=== PATIENT | female | born 1960 | race Hispanic/Latino ===

== ENCOUNTER 2016-07-06 18:01 | Emergency (ER) | payer OTHER, MEDICARE ==
[~2016-07-06] VITALS: Ht 154.9 cm; Wt 81.0 kg
[~2016-07-06 18:01] MED LIST: ACET325T38 PO; ALLO300T2 PO; ALPR.5T PO; ALPR0.25 PO; AML2.5T PO; AML5T PO; AMLO10TA82 PO; ASPI-809 PO; ASPI-860 PO; ATN50T PO; ATOR20TA PO; ATOR40TA2 PO; AZIT250T PO; AZIT250T81 PO; BO30SU PR; CALC600T12 PO; CEFD300C PO; CELE200C PO; CELE50CA PO; CEPH-507 PO; CLON0.1T PO; CLON1TAB27 PO; CLON1TAB3 PO; CLOP75TA28 PO; CLOP75TA3 PO; COLC0.6T7 PO; CPR500T PO; CYCL-265 PO; CYCL10TA45 PO; DABI150C PO; DABI75CA2 PO; DIAZ5TAB3 PO; DICY10CA26 PO; DOCU-243 PO; DULO20CA PO; DULO30CA PO; DULO30CA3 PO; ENOX80DI7 SC; ENOX80DI7 SQ; ENXP80I.8 SC; ESZO3TAB38 PO; FEN12TD TD; FENT1PAT8 TD; FLUT16SP; FNT100TD TD; FNT50TD TD; FNT50TD TOP; FNT75TD TD; FURO40TA4 PO; GABA100C PO; GBPN100C PO; GBPN300C PO; HYDR-2651 PO; HYDR2TAB14 PO; IRON150C3 PO; ISOS30TA7 PO; KCL20TCR PO; LD5PT TOP; LIDO700A32 TOP; LORA0.5T PO; METH4TAB10 PO; METH750T3 PO; MGS40T PO; MIRT15TA98 PO; MORP-33 PO; MORP15TA PO; NFPRILOC40 PO; NIFE30TA94 PO; NITR0.4T SL; NITR100C PO; NITR100C3 PO; NYST30CR TOP; OMEP40CA3 PO; OMG1KC PO; ONDA4TAB11 PO; ONDA4TAB8 PO; OXYC-272 PO; OXYC15TA79 PO; OXYC1TAB12 PO; OXYC1TAB7 PO; PANT40TA3 PO; PHYT100T PO; POLY17PO2 PO; POTA10CA43 PO; POTA10TA10 PO; PRAM0.252 PO; PRAM0.253 PO; PRAM0.257 PO; PREG25CA GT; PREG25CA PO; SCR1T1 PO; SERT100T8 PO; SIMV40TA2 PO; SLEEPING PILL PO; SOTA120T PO; SPRN25T PO; SRTR100T PO; SULF1TAB35 PO; TOLT2TAB5 PO; TRIA80CR3 TOP; WARF10TA PO; WARF5TAB6 PO; WARF6TAB3 PO; WRF5T PO
[2016-07-06] MEDS ORDERED: WRF5T PO (18:27)
[2016-07-06] MEDS ORDERED: CLPD75T PO (18:27)
--- NOTE | 2016-07-06 19:00 | NUR ---
Report given to Maritza RN - care relinquished
--- NOTE | 2016-07-06 19:35 | NUR ---
Patient reported, "I think I am having withdrawals from not taking my pain medications. Dr. Fu stopped all my pain medications two weeks ago and when I was in [facility] the PA told me not to use my Fentanyl patches because that is what is killing people more than the pills. So I havent had one on since [place]."
[2016-07-06 19:37] LABS: BASOPHILS % (AUTO) 1 % (0-2); EOSINOPHILS % (AUTO) 1 % (0-4); LYMPHOCYTES # (AUTO) 1.8 X10^3; MEAN CORPUSCULAR HEMOGLOBIN 29.3 PG (26.0-34.0); MEAN CORPUSCULAR HGB CONC 34.7 g/dL (31.0-37.0); MEAN CORPUSCULAR VOLUME 84 FL (80-100); MEAN PLATELET VOLUME 9.4 FL (6.0-9.5); MONOCYTES # (AUTO) 0.3 X10^3; MONOCYTES % (AUTO) 5 % (3-11); NEUTROPHILS # (AUTO) 4.4 X10^3; NEUTROPHILS % (AUTO) 67 % (51-67); PLATELET COUNT 193 10^3uL (150-450); WHITE BLOOD COUNT 6.64 10^3uL (4.0-11.0)
[2016-07-06 19:58] LABS: ALBUMIN 4.6 g/dL (3.4-5.0); ALKALINE PHOSPHATASE 108 U/L (38-126); ANION GAP 19.1 MEQ/L (3-15); BUN/CREATININE RATIO 21 (10-20); CALCULATED IONIZED CALCIUM 3.9 mg/dL (3.8-4.6); CREATINE KINASE 47 U/L (30-135); TOTAL PROTEIN 7.7 g/dL (6.4-8.5)
[2016-07-06] MEDS ORDERED: DEXAMETHASONE 10 MG/ML (DECADRON) VIAL IM ONE (20:20)
--- NOTE | 2016-07-06 20:27 | NUR ---
[facility] GIVEN IM NOT IV SO NO START STOP TIME
[2016-07-06] MEDS ORDERED: METH4TAB27 PO (20:49)
[2016-07-06 20:58] VITALS: BP 121/80
--- NOTE | 2016-07-06 22:14 | Diagnostic Imaging Report ---
INDICATION: A 55-year-old female presents with shortness of breath, chest pain, and shoulder pain. COMPARISONS: 05/10/16. FINDINGS: PA and lateral films of the chest show chronic parenchymal changes. Cardiac contour is normal. No significant consolidations seen. There is a previous median sternotomy possibly for a CABG. Coronary stent is seen. There is no effusion or pneumothorax. Soft tissues and bony thorax are grossly unremarkable. IMPRESSION: Chronic parenchymal changes but no evidence of acute cardiopulmonary disease. Dictated by: Dictated on workstation # [id number]
--- NOTE | 2016-07-06 22:18 | Diagnostic Imaging Report ---
INDICATION: 55-year-old female presents with left shoulder pain. COMPARISON: None. EXAMINATION: Three views of the left shoulder were obtained. FINDINGS: No evidence of new or healing fractures, bony destruction or remodeling. The left femoral head appears well-seated within the left glenoid. IMPRESSION: No fracture or subluxation is seen with an intact left glenohumeral joint. If symptoms persist, a nonemergent MRI may be of further value to better assess for possible internal derangement. Dictated by: Dictated on workstation # [id number]
[2016-08-09] MEDS ORDERED: MIRT15TA8 PO (16:35)
[2016-08-09] MEDS ORDERED: BACL10TA PO (16:35)
[2016-08-09] MEDS ORDERED: GBPN300C PO (16:35)
[2016-08-09] MEDS ORDERED: AMOX1TAB12 PO (18:29)
[2016-08-09] MEDS ORDERED: HYDR-3702 PO (18:29)
[2016-09-05] MEDS ORDERED: OXYC1TAB87 PO (18:16)
[2016-09-24] MEDS ORDERED: TOLT2TAB5 (12:46)
[2016-09-24] MEDS ORDERED: ATOR40TA59 PO (12:46)
[2016-09-24] MEDS ORDERED: SOTA120T (12:46)
[2016-09-24] MEDS ORDERED: POTA10TA10 (12:46)
[2016-09-24] MEDS ORDERED: PANT40TA3 (12:46)
[2016-09-24] MEDS ORDERED: NITR0.4T7 PO (12:46)
[2016-09-24] MEDS ORDERED: FURO40TA4 (12:46)
[2016-09-24] MEDS ORDERED: SPRN25T PO (12:46)
[2016-09-24] MEDS ORDERED: ALLO300T2 (12:46)
[2016-09-24] MEDS ORDERED: CLOP75TA28 (12:46)
[2016-09-24] MEDS ORDERED: OXYC1TAB12 (12:46)
[2016-09-24] MEDS ORDERED: WARF5TAB6 (12:46)
[2016-09-24] MEDS ORDERED: AMLO10TA82 (12:46)
[2016-09-24] MEDS ORDERED: ONDA4TAB8 PO (14:05)
== END 2016-07-06 20:59 | disposition home or self-care (01) ==
LOC: ED 18:05
DX: M54.12 Radiculopathy, cervical region (principal)
CPT/HCPCS: 36415; 71020; 73030; 80053; 82550; 82553; 84484; 85025; 85379; 85610; 85730; 93005; 96372; 99282; J1100; 93010; 99284

== ENCOUNTER 2016-07-25 03:08 | Emergency (ER) | payer OTHER, MEDICARE ==
[~2016-07-25] VITALS: Ht 154.9 cm; Wt 89.3 kg
--- NOTE | 2016-07-25 03:27 | NUR ---
PT STATES SHE HAS QUIT TAKING ALL OF HER MEDS, SAID SHE TOLD HER SHE IS SUPPOSE TO GO SEE A PAIN SPECIALIST IN [place] NEXT WEEK.
[2016-07-25] MEDS ORDERED: KETOROLAC 60 MG/2 ML (TORADOL) VIAL IM ONE (03:50)
--- NOTE | 2016-07-25 04:00 | NUR ---
D/T PT STOPPED ALL MEDS INSTRUCTED BY DR SALMON TO FOLLOW UP WITH DR CAMACHO FOR FURTHER MEDICATION MANAGEMENT
[2016-07-25 04:13] VITALS: BP 190/97
== END 2016-07-25 04:15 | disposition home or self-care (01) ==
LOC: ED 03:09
DX: G89.29 Other chronic pain (principal); M79.632 Pain in left forearm
CPT/HCPCS: 96372; 99282; J1885

== ENCOUNTER 2016-08-09 16:16 | Emergency (ER) | payer OTHER, MEDICARE ==
[~2016-08-09] VITALS: Ht 154.9 cm; Wt 83.4 kg
[2016-08-09 16:31] VITALS: BP 162/102
== END 2016-08-09 18:38 | disposition home or self-care (01) ==
LOC: ED 16:17
DX: J01.30 Acute sphenoidal sinusitis, unspecified (principal)
CPT/HCPCS: 70450; 70486; 99282; 99283

== ENCOUNTER 2016-09-05 13:09 | Emergency (ER) | payer OTHER, MEDICARE ==
[~2016-09-05] VITALS: Ht 154.9 cm; Wt 83.6 kg
[2016-09-05 13:21] VITALS: BP 167/83
[2016-09-05] MEDS ORDERED: HYDROmorphone 1 MG/ML (DILAUDID) SYRINGE IV ONE (14:45)
[2016-09-05] MEDS ORDERED: PROMETHAZINE 25 MG/ML (PHENERGAN) 1 ML VIAL IM ONE (14:45)
--- NOTE | 2016-09-05 15:20 | NUR ---
water given to pt
== END 2016-09-05 18:29 | disposition home or self-care (01) ==
LOC: ED 13:12
DX: G89.29 Other chronic pain (principal); M54.5 Low back pain; M54.89 Other dorsalgia
CPT/HCPCS: 72072; 96372; 96374; 99282; J1170; J2550; 99283

== ENCOUNTER → 2016-09-15 | Outpatient (CLI) | payer OTHER, MEDICARE | LOC: RAD 16:33 | PROVIDERS: ATTEND Neurological Surgery | DX: M48.06 Spinal stenosis, lumbar region (principal); M51.36 Other intervertebral disc degeneration, lumbar region | CPT/HCPCS: 72100 ==

== ENCOUNTER 2016-09-24 12:14 | Emergency (ER) | payer OTHER, MEDICARE ==
[~2016-09-24] VITALS: Ht 154.9 cm; Wt 82.3 kg
[2016-09-24] MEDS ORDERED: ONDANSETRON 2 MG/ML (Z0FRAN) 2 ML VIAL IV ONE (12:40)
[2016-09-24] MEDS ORDERED: NS IV 500 ML 500 ML IV SCH (12:40)
[2016-09-24] MEDS ORDERED: PANTOPRAZOLE IV 40 MG in SODIUM CHLORIDE FLUSH 10 ML IV ONE (12:50)
[2016-09-24] MEDS ORDERED: morphine INJ 4 MG/ML 1 ML SYRINGE IV ONE (13:15)
[2016-09-24 13:19] LABS: BASOPHILS % (AUTO) 1 % (0-2); EOSINOPHILS # (AUTO) 0.1 10^3uL; EOSINOPHILS % (AUTO) 2 % (0-4); LYMPHOCYTES # (AUTO) 1.6 X10^3; MEAN CORPUSCULAR HEMOGLOBIN 29.7 PG (26.0-34.0); MEAN CORPUSCULAR HGB CONC 34.7 g/dL (31.0-37.0); MEAN CORPUSCULAR VOLUME 86 FL (80-100); MEAN PLATELET VOLUME 9.4 FL (6.0-9.5); MONOCYTES # (AUTO) 0.4 X10^3; MONOCYTES % (AUTO) 7 % (3-11); NEUTROPHILS # (AUTO) 3.4 X10^3; NEUTROPHILS % (AUTO) 62 % (51-67); PLATELET COUNT 182 10^3uL (150-450); WHITE BLOOD COUNT 5.42 10^3uL (4.0-11.0)
[2016-09-24 13:37] LABS: ALBUMIN 4.8 g/dL (3.4-5.0); CALCULATED IONIZED CALCIUM 3.7 mg/dL (3.8-4.6); TOTAL PROTEIN 8.2 g/dL (6.4-8.5)
[2016-09-24 13:57] LABS: BILIRUBIN,URINE Negative (Negative); CLARITY,URINE Clear; COLOR,URINE Yellow; GLUCOSE, URINE (UA) Negative (Negative); LEUKOCYTE ESTERASE ,URINE Negative (Negative); PH,URINE 5.5 (5.0 - 8.0); UROBILINOGEN,URINE 0.2 mg/dL (0.2-1.0)
[2016-09-24 14:16] LABS: URINE CENTRIFUGED VOLUME 12 mL
[2016-09-24 14:17] VITALS: BP 122/61
== END 2016-09-24 14:18 | disposition home or self-care (01) ==
LOC: ED 12:18
DX: R10.32 Left lower quadrant pain (principal); R11.2 Nausea with vomiting, unspecified
CPT/HCPCS: 36415; 74022; 80053; 81003; 81015; 83690; 85025; 85610; 96361; 96365; 96375; 99283; C9113; J2270; J2405; J7040

== ENCOUNTER 2016-10-20 13:46 | Emergency (ER) | payer OTHER, MEDICARE ==
[~2016-10-20] VITALS: Ht 154.9 cm; Wt 81.8 kg
[~2016-10-20 13:46] MED LIST changes: +ALLO300T2; +AMLO10TA82; +AMOX1TAB12 PO; +ATOR40TA59 PO; +BACL10TA PO; +CLOP75TA28; +CLPD75T PO; +FURO40TA4; +HYDR-3702 PO; +METH4TAB27 PO; +MIRT15TA8 PO; +NITR0.4T7 PO; +OXYC1TAB12; +OXYC1TAB87 PO; +PANT40TA3; +POTA10TA10; +SOTA120T; +TOLT2TAB5; +WARF5TAB6
[2016-10-20] MEDS ORDERED: ASPIRIN 81 MG CHEW (CHILDREN'S ASA) PO PRN (14:05)
[2016-10-20] MEDS ORDERED: NITROGLYCERIN SUBLINGUAL 0.4 MG (NITROQUICK) TABLET SL PRN (14:05)
[2016-10-20] MEDS ORDERED: morphine INJ 2 MG/ML 1 ML SYRINGE IV PRN (14:05)
[2016-10-20] MEDS ORDERED: NITROGLYCERIN 2% OINTMENT (NITRO-BID) 1 GM UNIT DOSE PACKET TOP PRN (14:05)
[2016-10-20 14:10] LABS: BASOPHILS % (AUTO) 0 % (0-2); EOSINOPHILS % (AUTO) 1 % (0-4); LYMPHOCYTES # (AUTO) 2.3 X10^3; MEAN CORPUSCULAR HEMOGLOBIN 29.6 PG (26.0-34.0); MEAN CORPUSCULAR HGB CONC 34.7 g/dL (31.0-37.0); MEAN CORPUSCULAR VOLUME 85 FL (80-100); MEAN PLATELET VOLUME 9.4 FL (6.0-9.5); MONOCYTES # (AUTO) 0.5 X10^3; MONOCYTES % (AUTO) 7 % (3-11); NEUTROPHILS # (AUTO) 3.8 X10^3; NEUTROPHILS % (AUTO) 58 % (51-67); PLATELET COUNT 184 10^3uL (150-450); WHITE BLOOD COUNT 6.69 10^3uL (4.0-11.0)
[2016-10-20] MEDS: LORazepam 2 MG/ML (ATIVAN) 1 ML VIAL IV ONE (14:19)
[2016-10-20 14:21] LABS: ALBUMIN 4.5 g/dL (3.4-5.0); ALKALINE PHOSPHATASE 122 U/L (38-126); ANION GAP 17.5 MEQ/L (3-15); BUN/CREATININE RATIO 24 (10-20); CALCULATED IONIZED CALCIUM 3.8 mg/dL (3.8-4.6); CREATINE KINASE 50 U/L (30-135); TOTAL PROTEIN 7.9 g/dL (6.4-8.5)
[2016-10-20] MEDS: SODIUM CHLORIDE FLUSH 10 ML SYR IV PRN (14:27)
--- NOTE | 2016-10-20 14:36 | Diagnostic Imaging Report ---
INDICATION: Chest pain. DISCUSSION: Single portable upright view of the chest was obtained, comparison 07/06/2016. Median sternotomy is stable. Stable normal heart size. No focal consolidation, pleural fluid, or pneumothorax. No osseous abnormality. IMPRESSION: 1. Negative portable chest. Dictated by: Dictated on workstation # [id number]
--- NOTE | 2016-10-20 14:43 | NUR ---
pt in the room supine and eyes closed, states she feels better
--- NOTE | 2016-10-20 15:05 | NUR ---
pt lying supine with eyes closed
[2016-10-20 15:36] VITALS: BP 124/75
== END 2016-10-20 15:43 | disposition home or self-care (01) ==
LOC: ED 13:47
DX: R07.89 Other chest pain (principal); I25.10 Atherosclerotic heart disease of native coronary artery without angina pectoris; I10 Essential (primary) hypertension; Z87.891 Personal history of nicotine dependence
CPT/HCPCS: 36415; 71010; 80053; 82550; 82553; 84484; 85025; 85610; 85730; 93005; 96374; 99285; J2060; 93010; 99284

== ENCOUNTER 2016-10-29 17:12 | Emergency (ER) | payer OTHER, MEDICARE ==
[~2016-10-29] VITALS: Ht 154.9 cm; Wt 84.0 kg
[2016-10-29] MEDS ORDERED: HYDROmorphone 1 MG/ML (DILAUDID) SYRINGE IM ONE (18:45)
[2016-10-29] MEDS ORDERED: SODIUM CHLORIDE FLUSH 10 ML SYR IV PRN (19:20)
[2016-10-29] MEDS ORDERED: SODIUM CHLORIDE FLUSH 3 ML SYR IV PRN (19:20)
[2016-10-29] MEDS ORDERED: ONDANSETRON 2 MG/ML (Z0FRAN) 2 ML VIAL IV ONE (19:20)
[2016-10-29 19:44] LABS: BASOPHILS % (AUTO) 0 % (0-2); EOSINOPHILS # (AUTO) 0.1 10^3uL; EOSINOPHILS % (AUTO) 1 % (0-4); LYMPHOCYTES # (AUTO) 1.6 X10^3; MEAN CORPUSCULAR HEMOGLOBIN 29.7 PG (26.0-34.0); MEAN CORPUSCULAR HGB CONC 34.5 g/dL (31.0-37.0); MEAN CORPUSCULAR VOLUME 86 FL (80-100); MEAN PLATELET VOLUME 9.6 FL (6.0-9.5); MONOCYTES # (AUTO) 0.4 X10^3; MONOCYTES % (AUTO) 7 % (3-11); NEUTROPHILS # (AUTO) 3.5 X10^3; NEUTROPHILS % (AUTO) 63 % (51-67); PLATELET COUNT 170 10^3uL (150-450); WHITE BLOOD COUNT 5.55 10^3uL (4.0-11.0)
[2016-10-29 19:52] LABS: ALBUMIN 4.1 g/dL (3.4-5.0); CALCULATED IONIZED CALCIUM 3.8 mg/dL (3.8-4.6); TOTAL PROTEIN 7.4 g/dL (6.4-8.5)
[2016-10-29] MEDS ORDERED: HYDROmorphone 2 MG/ML (DILAUDID) 1 ML SYRINGE IM ONE (21:05)
[2016-10-29] MEDS ORDERED: ONDANSETRON 4 MG (ZOFRAN) ORAL DISSOLVE TAB PO ONE (21:05)
[2016-10-29 21:53] VITALS: BP 162/84
--- NOTE | 2016-10-30 07:30 | Diagnostic Imaging Report ---
Clinical indication: Patient with back pain radiating to the chest. Patient has history of DVTs. Exam: CT angiogram of the chest performed with 100 cc 300 IV contrast. Coronal and oblique MIP images of the vasculature were created to better evaluate anatomy. Comparison: None. Findings: Very limited evaluation of the bilateral pulmonary arteries and thoracic aorta due to bolus timing. The limited visualization of the main pulmonary artery and bifurcation region shows no gross intraluminal defect. The remainder of the pulmonary arteries are uninterpretable. There is no gross thoracic aortic abnormality in its limited visualized portions. There is no evidence of pulmonary embolism. There is no thoracic aortic dissection or aneurysm. There is mild dependent atelectasis involving the posterior aspects of both lower lobes. There is no pleural effusion pneumothorax. There is no mediastinal or axillary lymphadenopathy. There are postop changes to the chest with sternotomy wires seen. There is extensive coronary artery atherosclerotic disease. Coronary artery stents may also be present. Otherwise, the mediastinal structures and heart shows no significant abnormality. Gallbladder surgically absent. Mild fatty replacement and atrophic changes of the pancreatic head and neck. Otherwise, the visualized portions of the upper abdominal structures are unremarkable. There are small degenerative spurs involving the thoracic spine. There is no gross acute thoracic spine fracture or dislocation. Impression: 1: Very limited evaluation of the thoracic aorta and pulmonary arteries due to contrast bolus timing. 2: There is no gross intraluminal defect involving the main pulmonary artery and in the region of its bifurcation. Otherwise, the remainder of the pulmonary arteries are uninterpretable. If there is continued concern for pulmonary embolism, then repeat exam is suggested. 3: Postop changes to the chest. I agree with [facility] report. Dictated by: Dictated on workstation # [id number]
== END 2016-10-29 21:45 | disposition home or self-care (01) ==
LOC: ED 17:14
DX: M54.6 Pain in thoracic spine (principal); R07.9 Chest pain, unspecified; I11.9 Hypertensive heart disease without heart failure; Z95.1 Presence of aortocoronary bypass graft; Z87.891 Personal history of nicotine dependence; I25.2 Old myocardial infarction; Z86.718 Personal history of other venous thrombosis and embolism
CPT/HCPCS: 36415; 71275; 80053; 82550; 82553; 84484; 85025; 85610; 85730; 93005; 99285; Q9967; 93010; 99284

== ENCOUNTER 2016-11-28 12:42 | Emergency (ER) | payer OTHER, MEDICARE ==
[~2016-11-28] VITALS: Ht 154.9 cm; Wt 83.6 kg
--- NOTE | 2016-11-28 14:14 | Diagnostic Imaging Report ---
INDICATION: Chest pain. Started during the week. Skipping heart, feels like skipping beats. Difficulty breathing, shortness of air. Shoulder pain. EXAMINATION: Two-view chest, 11/28/2016. COMPARISON: 10/20/2016 FINDINGS: Heart is stable. The pulmonary vasculature is minimally prominent. Lungs are clear other than chronic-appearing interstitial changes. There are no effusions. There is no pneumothorax. Sternotomy wires, mediastinal clips and IVC filter noted. Clips in the right upper quadrant also noted. IMPRESSION: 1. Chronic change with mild prominence of the pulmonary vasculature some of which could be chronic as well but mild edema not excluded. Other changes as above. Dictated by: Dictated on workstation # [id number]
[2016-11-28] MEDS ORDERED: PRCD5U PO (14:20)
[2016-11-28] MEDS ORDERED: AZIT250T81 PO (14:20)
[2016-11-28 15:28] VITALS: BP 140/74
== END 2016-11-28 15:30 | disposition home or self-care (01) ==
LOC: ED 12:46
DX: J20.9 Acute bronchitis, unspecified (principal); M94.0 Chondrocostal junction syndrome [Tietze]
CPT/HCPCS: 71020; 93005; 93010; 99284